=== PATIENT | female | born 1995 | race Caucasian/White ===

== ENCOUNTER 2017-08-09 11:19 | Emergency (ER) | payer OTHER ==
[2017-08-09] MEDS ORDERED: methylPREDNISolone SOD SUCC 125 MG/2 ML VIAL IVP ONE (11:36)
[2017-08-09] MEDS ORDERED: RANITIDINE 50 MG/2 ML VIAL IVP ONE (11:36)
[2017-08-09 11:38] VITALS: RESP 16
--- NOTE | 2017-08-09 11:41 | EDPHY ---
H & P Time Seen by Provider: 08/09/17 11:29 HPI/ROS: CHIEF COMPLAINT: Allergic reaction HISTORY OF PRESENT ILLNESS: 22-year-old female presents to the emergency department by ambulance with acute allergic reaction. 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 She thinks possibly yellow jackets. She developed difficulty breathing. She does not think that she has any retained stingers. EMS gave her 50 mg of IV diphenhydramine and she is now feeling better. She did feel some swelling in the back of her throat however she does not notice that now. She does feel itchy all over. She denies abdominal pain. She has never had this reaction to bees in the past but has had a similar reaction when she had almonds. No chest pain or difficulty breathing. No abdominal pain. No headache. REVIEW OF SYSTEMS: Constitutional: No fever, no chills. Eyes: No double or blurry vision. ENT: No sore throat. Respiratory: No cough, no shortness of breath. Cardiac: No chest pain. Gastrointestinal: No abdominal pain, vomiting or diarrhea. Genitourinary: No dysuria. Musculoskeletal: No neck or back pain. Skin: Pruritic rash. Neurological: No headache. (Elaina Ha) Past Medical/Surgical History: Negative (Elaina Ha) Social History: [employer] student from [employer] (Elaina Ha) Physical Exam: General Appearance: Alert, no distress. No respiratory distress Eyes: Pupils equal and round. Extraocular motions are all intact. ENT: Mouth: Mucous membranes moist. No uvular swelling. Respiratory: No wheezing, rhonchi, or rales, lungs are clear to auscultation. Cardiovascular: Regular rate and rhythm. Gastrointestinal: Abdomen is soft and nontender, no masses, no rebound or guarding, bowel sounds normal. Neurological: Alert and oriented x 3, cranial nerves II through XII grossly intact Skin: Diffuse erythematous patches noted especially to her back and to her upper anterior chest. They luz to the touch. No evidence of retained stinger. She also has a few erythematous patches noted to her left and right upper extremities. Musculoskeletal: Nontender to palpate along the cervical, thoracic or lumbar spine. Neck is supple. Extremities: Full range of motion and no peripheral edema. Psychiatric: Patient is oriented X 3, there is no agitation. (Elaina Ha) Constitutional: Initial Vital Signs Temperature (C) 36.0 C 08/09/17 11:36 Heart Rate 50 L 08/09/17 11:36 Respiratory Rate 16 08/09/17 11:36 Blood Pressure 118/78 08/09/17 11:36 O2 Sat (%) 97 08/09/17 11:36 O2 Delivery Mode Room Air Allergies/Adverse Reactions: No Known Allergies Allergy (Unverified 08/09/17 11:34) Home Medications: Medication Instructions Recorded Albuterol 08/09/17 EPINEPHRINE [EPIPEN] 0.3 mg IM ONCE #2 syr 08/09/17 predniSONE 60 mg PO DAILY 3 Days tab 08/09/17 Medical Decision Making ED Course/Re-evaluation: 22-year-old female presents with acute allergic reaction. Patient was having difficulty breathing and swallowing however after she received 50 mg of diphenhydramine IV by EMS, upon arrival in the emergency department she feels much better. She still has diffuse erythematous rash. She was given 50 mg of IV ranitidine 125 mg of IV Solu-Medrol. She was observed for over 1 hour in the emergency department and had no recurring symptoms. She is comfortable being discharged home. She will be discharged with additional prednisone and encouraged to take [id number] Benadryl and Pepcid as needed. She was given prescription for EpiPen. (Elaina aH) I did not see this patient while she was in the emergency department. However her care was discussed with the PA while the patient was in the department. I agree with treatment plan and management (Taz Salinas) Differential Diagnosis: Including but not limited to allergic reaction, anaphylaxis, urticaria, anxiety , asthma exacerbation (Elaina Ha) - Data Points Medications Given: Discontinued Medications Methylprednisolone Sodium Succinate (Solu-Medrol) 125 mg IVP EDNOW ONE Stop: 08/09/17 11:37 Last Admin: 08/09/17 11:43 Dose: 125 mg Ranitidine HCl (Zantac) 50 mg IVP EDNOW ONE Stop: 08/09/17 11:37 Last Admin: 08/09/17 11:43 Dose: 50 mg Departure - Departure Disposition: Home, Routine, Self-Care Clinical Impression: Acute anaphylaxis Condition: Good Instructions: Bupivacaine/Epinephrine (By injection), Insect Bite or Sting (ED) , Anaphylaxis (ED) Additional Instructions: You may continue Benadryl 50 mg every 6-8 hours as needed for itching or swelling. Caution this medication will make you drowsy. You may also use over- the-counter Pepcid 20 mg daily for itching. Prednisone daily for the next 3 days. You may start this medication tomorrow since your given a dose of IV Solu -Medrol in the emergency department. EpiPen as directed for symptoms of anaphylaxis. Return to the emergency department if you developed recurring swelling, difficulty swallowing, or if you feel worse in any way. Referrals: Jose Cruz Long MD [place] [place] - 5-7 days, call for appt. ( Primary care provider composition worker) Prescriptions: EPINEPHRINE [EPIPEN] 0.3 mg IM ONCE #2 syr predniSONE 60 mg PO DAILY 3 Days tab
[2017-08-09 12:39] VITALS: BP 118/75; PULSE 51; TEMP 97.7; O2SAT 98
== END 2017-08-09 12:38 | disposition home or self-care (01) ==
DX: T63.441A Toxic effect of venom of bees, accidental (unintentional), initial encounter (principal)
CPT/HCPCS: 96374; J2780